=== PATIENT | female | born 1980 | race Caucasian/White ===

== ENCOUNTER 2016-11-06 06:41 | Emergency (ER) | payer OTHER ==
[~2016-11-06] VITALS: Ht 154.9 cm; Wt 61.4 kg
[2016-11-06 06:44] VITALS: BP 129/91; TEMP 98.8
[2016-11-06 07:52] LABS: BASO # 0.1 (0.0-0.2); BASO % 0.6 % (0.0-2.0); EOS % 0.1 % (0-4.0); GRAN # 8.8 (1.4-6.5); GRAN % 83.7 % (42.2-75.2); HEMATOCRIT 42.9 % (37.0-47.0); HEMOGLOBIN 14.1 g/dl (12.5-16.0); LYMPH % 9.5 % (20.0-51.0); MEAN CELL VOLUME 90 fl (80.0-100.0); MEAN CORPUSCULAR HEMOGLOBIN 29 pg (27.0-31.0); MEAN CORPUSCULAR HGB CONC 33 g/dl (33.0-37.0); MEAN PLATELET VOLUME 9.5 fl (7.4-10.4); MONO # 0.6 (0.1-0.6); MONO % 5.8 % (1.7-9.3); PLATELET COUNT 283 K/mm3 (130-400); RED BLOOD COUNT 4.79 M/mm3 (4.10-5.30); REDCELL DISTRIBUTION WIDTH-CV 12.1 % (11.5-14.5); WHITE BLOOD COUNT 10.5 K/mm3 (4.8-10.8)
[2016-11-06 07:56] LABS: PH 8 (5-8); SQUAMOUS EPITHELIAL 0-2 /hpf; URINE APPEARANCE Clear; URINE BACTERIA Rare /hpf; URINE BILIRUBIN Negative (NEGATIVE); URINE BLOOD 1+ (NEGATIVE); URINE COLOR Yellow; URINE GLUCOSE Negative (NEGATIVE); URINE KETONE Negative (NEGATIVE); URINE RBC 0-2 /hpf; URINE UROBILINOGEN Negative (NEGATIVE); URINE WBC 0-2 /hpf
[2016-11-06 07:59] LABS: ADJUSTED CALCIUM 9.6 mg/dL (8.4-10.2); ALANINE AMINOTRANSFERASE 34 U/L (9-52); ALBUMIN 4.5 gm/dL (3.5-5.0); ALKALINE PHOSPHATASE 77 U/L (50-136); ANION GAP 11 mmol/L (7-16); BILIRUBIN,TOTAL 0.8 mg/dL (0.0-1.0); BLOOD UREA NITROGEN 7 mg/dL (7-17); CARBON DIOXIDE 29 mmol/L (22-30); CHLORIDE 103 mmol/L (98-107); CREATININE, serum 0.68 mg/dL (0.52-1.25); GLUCOSE 102 mg/dL (74-106); POTASSIUM 3.5 mmol/L (3.4-5.0); SODIUM 142 mmol/L (137-145); TOTAL PROTEIN 7.8 gm/dL (6.4-8.2)
[2016-11-06 08:12] LABS: TROPONIN-I < 0.012 ng/mL (0.000-0.034)
[2016-11-06] MEDS ORDERED: ATIVAN 1MG T1 MG/TAB PO (08:33)
[2016-11-06 08:44] VITALS: PULSE 99
== END 2016-11-06 08:44 | disposition home or self-care (01) ==
LOC: COL.ER 06:41
PROVIDERS: Nurse Practitioner
DX: R42 Dizziness and giddiness (principal); F41.9 Anxiety disorder, unspecified

== ENCOUNTER → 2016-11-10 | Outpatient (REF) ==
[~2016-11-10] MED LIST: ATIVAN 1MG T1 MG/TAB PO
== END ==
LOC: ZLAB.WCH 10:28
DX: Z01.89 Encounter for other specified special examinations (principal)

== ENCOUNTER → 2017-11-04 | Outpatient (REF) ==
[2017-11-04 21:01] LABS: THYROID STIMULATING HORMONE 1.41 uIU/mL (0.465-4.680)
== END ==
LOC: ZLAB.WCH 19:32
PROVIDERS: Family Medicine
DX: Z01.89 Encounter for other specified special examinations (principal)